=== PATIENT | male | born 1980 | race Two or more races ===

== ENCOUNTER 2023-08-07 11:16 | Emergency (ER) | payer OTHER ==
[~2023-08-07] VITALS: Ht 175.3 cm; Wt 68.0 kg
[2023-08-07 12:30] LABS: HEMATOCRIT 43.1 % (39.0-48.0); MEAN CELL VOLUME 87.2 fL (80.0-100.00); MEAN CORPUSCULAR HEMOGLOBIN 30.3 pg (27.00-32.0); MEAN CORPUSCULAR HGB CONC 34.8 g/dl (32.0-36.0); PLATELET COUNT 286 K/uL (150-450); RED BLOOD COUNT 4.94 M/uL (4.00-6.00); RED CELL DISTRIBUTION WIDTH 13.3 % (11.5-14.5)
[2023-08-07 12:48] LABS: CALCIUM 9.3 mg/dL (8.5-10.1); GFR 81.17; POTASSIUM 3.82 mEq/L (3.5-5.1)
[2023-08-07] MEDS ORDERED: RINGERS SOLUTION,LACTATED 1,000 ML IV STA (13:15)
[2023-08-07] MEDS ORDERED: FAMOtidine 10 MG/ML (4ML VIAL) IV STA (13:16)
[2023-08-07] MEDS ORDERED: MEPERIDINE HCL/PF 50 MG/ML VIAL IM STA (13:19)
[2023-08-07] MEDS ORDERED: ONDANSETRON HCL 2 MG/ML VIAL IV STA (16:03)
[2023-08-07] MEDS ORDERED: ONDANSETRON HCL 2 MG/ML VIAL IM STA (16:06)
[2023-08-07] MEDS ORDERED: LACTULOSE 20 G/30 ML BLIST.PACK PO ONE (16:30)
[2023-08-07] MEDS ORDERED: MAGNESIUM HYDROXIDE 400 MG/5 ML ML PO ONE (16:30)
== END 2023-08-07 18:20 | disposition home or self-care (01) ==
LOC: ER 11:16
PROVIDERS: General Practice
DX: K59.00 Constipation, unspecified (principal)